=== PATIENT | female | born 1945 | race Caucasian/White ===

== ENCOUNTER 2022-06-04 10:50 | Emergency (ER) | payer OTHER, SELFPAY ==
[2022-06-04] VITALS (41 sets, daily range): BP systolic 108–156; BP diastolic 51–70; PULSE 73–97; RESP 14–35; TEMP 36.4–36.8; O2SAT 96–100; BMI 25.9
[2022-06-04 11:20] LABS: Add Manual Diff / Slide Review NO; Basophils Absolute Auto 0 /uL (0-100); Basophils Percent Auto 0.5 % (0-2); Eosinophils Absolute Auto 100 /uL (0-450); Eosinophils Percent Auto 1.5 % (2-4); Hematocrit 22.3 % (36-46); Hemoglobin 7.1 g/dL (12.0-16.0); Lymphocytes Absolute Auto 400 /uL (1100-4500); Lymphocytes Percent Auto 9.2 % (25-40); Mean Corpuscular HGB Conc 31.9 % (30-36); Mean Corpuscular Hemoglobin 26.3 PG (26-34); Mean Corpuscular Volume 82.3 fL (80-100); Monocytes Absolute Auto 400 /uL (0-900); Monocytes Percent Auto 8.8 % (3-14); Neutrophils Absolute Auto 3400 /uL (1500-7000); Platelet Count 174 X10^3/uL (150-400); Red Blood Cell Count 2.71 X10^6/uL (4.0-5.2); Red Cell Distribution Width 19.6 % (11.6-14.8); White Blood Cell Count 4.2 X10^3/uL (4.5-11.0)
[2022-06-04 11:21] LABS: INR 1.1 (0.9-1.3); Prothrombin Time 12.1 SECONDS (10.1-12.7)
[2022-06-04 11:23] LABS: PTT Partial Thromboplastin Tim 28 SECONDS (26-36)
--- NOTE | 2022-06-04 11:25 | ED_ITS ---
HPI - GI Bleed General Chief complaint: GI Bleed Stated complaint: rectal bleeding post chemo Time Seen by Provider: 06/04/22 10:58 Source: patient Mode of arrival: Ambulatory Limitations: no limitations History of Present Illness HPI Narrative: Patient is a 77-year-old female. History of a pancreatic tumor. Has undergone chemotherapy and radiation. She states that her last workup shows there is no signs of any tumors. She is had no abdominal surgeries. Over the past couple months she has had multiple issues with upper GI bleeding. She is from [place] and is visiting this area. She is received 6 units of blood over the past couple months because of bleeding. Has had multiple endoscopies and colon oscopies. Was told that her bleeding is coming from her stomach. The running thought was that it was from the radiation. She was cleared by her doctor to come here on vacation. She states that she was having some rectal bleeding over the past several days/weeks but it has worsened recently. She is becoming somewhat fatigued. She thinks her blood counts were low. She is having bright red blood per rectum. No vomiting. No belly pain. No blood in her urine. Does not bruise easily. Does not drink alcohol. Not on nonsteroidal anti- inflammatories. Related Data Home Medications Medication Instructions Recorded Confirmed pantoprazole 40 mg tablet,delayed 40 mg PO BID 06/05/22 06/05/22 release Allergies Allergy/AdvReac Type Severity Reaction Status Date / Time No Known Drug Allergies Allergy Verified 06/04/22 11:55 Review of Systems Review of Systems ROS Unobtainable: All systems reviewed & are unremarkable except as noted in HPI and below Patient History Medical History Pancreatic tumor Social History (Updated 06/04/22 @ 11:27 by Emiliano Ritter DO) marital status: Exam Initial Vital Signs Initial Vital Signs: Vital Signs Temperature 98.2 F 06/04/22 11:08 Pulse Rate 96 H 06/04/22 11:08 Respiratory Rate 20 06/04/22 11:08 Blood Pressure 156/70 H 06/04/22 11:08 Pulse Oximetry 100 06/04/22 11:08 Oxygen Delivery Method 06/04/22 11:08 Const General: cooperative and comfortable HENMT Head: normal to inspection and normocephalic Resp Effort & Inspection: normal respiratory effort Auscultation: clear to auscultation bilaterally Cardio Rate: regular rate Rhythm: regular rhythm GI Inspection: normal to inspection Palpation: soft and No tender Skin General: no rashes or lesions noted Neuro General: patient alert, patient awake, patient oriented x3 and moves all extremities Extrem General: normal to inspection and capillary refill normal Psych Appearance: grossly normal and well kempt Course Orders Ordered: Discontinued Medications Diphenhydramine HCl (Diphenhydramine 25 Mg Tablet) 25 mg PO NOW ONE Stop: 06/04/22 18:04 Last Admin: 06/04/22 18:23 Dose: 25 mg Documented By: CARLOS Pantoprazole Sodium (Pantoprazole 40 Mg Vial) 80 mg IV NOW ONE Stop: 06/04/22 11:37 Last Admin: 06/04/22 11:56 Dose: 80 mg Documented By: FRANNY Pantoprazole Sodium (Pantoprazole Dr 40 Mg Tablet) 40 mg PO 0700,2100 RICKY Vital Signs Vital signs: Vital Signs - 8 hr 06/05/22 07:22 06/05/22 04:30 06/05/22 05:00 Temperature 97.9 F Pulse Rate 76 77 Respiratory Rate 16 16 Blood Pressure Pulse Oximetry 97 94 06/05/22 05:30 06/05/22 06:00 06/05/22 06:30 Temperature Pulse Rate 77 78 76 Respiratory Rate 16 16 15 Blood Pressure Pulse Oximetry 93 96 93 06/05/22 07:00 06/05/22 07:02 06/05/22 07:02 Temperature Pulse Rate 77 92 H Respiratory Rate 15 23 Blood Pressure 120/60 Pulse Oximetry 95 99 06/05/22 07:51 06/05/22 08:00 06/05/22 08:30 Temperature Pulse Rate 85 82 80 Respiratory Rate 18 21 21 Blood Pressure Pulse Oximetry 99 99 99 06/05/22 09:00 06/05/22 09:10 06/05/22 09:10 Temperature Pulse Rate 80 79 Respiratory Rate 23 22 Blood Pressure 132/63 Pulse Oximetry 98 99 06/05/22 09:30 06/05/22 10:00 06/05/22 10:30 Temperature Pulse Rate 73 75 71 Respiratory Rate 17 15 15 Blood Pressure Pulse Oximetry 98 98 98 06/05/22 11:00 Temperature Pulse Rate 72 Respiratory Rate 16 Blood Pressure Pulse Oximetry 99 MDM - GI Bleed Lab Data Attestation: I reviewed the patient's lab results. Result diagrams: 06/05/22 07:19 06/04/22 11:03 Labs: Lab Results 06/04/22 06/04/22 06/04/22 Range/Units 11:03 11:03 11:03 WBC 4.2 L (4.5-11.0) X10^3/uL RBC 2.71 L (4.0-5.2) X10^6/uL Hgb 7.1 L (12.0-16.0) g/dL Hct 22.3 L (36-46) % MCV 82.3 (80-100) fL MCH 26.3 (26-34) PG MCHC 31.9 (30-36) % RDW 19.6 H (11.6-14.8) % Plt Count 174 (150-400) X10^3/uL Neut % (Auto) 80.0 H (50-75) % Lymph % (Auto) 9.2 L (25-40) % [place] % (Auto) 8.8 (3-14) % Eos % (Auto) 1.5 L (2-4) % Baso % (Auto) 0.5 (0-2) % Neut # (Auto) 3400 (3778-9549) /uL Lymph # (Auto) 400 L (5658-4296) /uL [place] # (Auto) 400 (0-900) /uL Eos # (Auto) 100 (0-450) /uL Baso # (Auto) 0 (0-100) /uL PT 12.1 (10.1-12.7) SECONDS INR 1.1 (0.9-1.3) APTT 28 (26-36) SECONDS Sodium 136 L (137-145) mmol/L Potassium 4.6 (3.4-5.1) mmol/L Chloride 108 H (98-107) mmol/L Carbon Dioxide 19 L (22-32) mmol/L BUN 11 (7-17) mg/dL Creatinine 0.56 (0.52-1.04) mg/dL Estimated GFR > 60 (>60) mL/min BUN/Creatinine Ratio 19.6 (6-22) Glucose 173 H (80-110) mg/dL Calcium 8.2 L (8.4-10.2) mg/dL Total Bilirubin 0.5 (0.2-1.3) mg/dL AST 44 H (14-36) IU/L ALT 23 (<35) IU/L Alkaline Phosphatase 145 H (38-126) U/L Total Protein 5.8 L (6.3-8.2) g/dL Albumin 3.3 L (3.5-5.0) g/dL Globulin 2.5 (1.7-4.1) g/dL Albumin/Globulin Ratio 1.3 (1.0-2.8) Urine Color Urine Appearance Urine pH (4.5-8.0) Ur Specific [place] (1.000-1.035) Urine Protein (Negative) Urine Glucose (UA) (Negative) g/dL Urine Ketones (NEGATIVE) Urine Occult Blood (Negative) Urine Nitrate (Negative) Urine Bilirubin (NEGATIVE) Urine Urobilinogen (0.2) E.U./dL Ur Leukocyte Esterase (NEGATIVE) Urine RBC (0-5/HPF) Urine WBC (0-5/HPF) Ur Squamous Epith Cells (0-5/HPF) Urine Bacteria (None) Ur Culture Indicated? SARS-CoV-2 (PCR) (Negative) Blood Type Antibody Screen Crossmatch 06/04/22 06/04/22 06/04/22 Range/Units 11:03 12:12 18:09 WBC (4.5-11.0) X10^3/uL RBC (4.0-5.2) X10^6/uL Hgb 8.9 L (12.0-16.0) g/dL Hct 26.9 L (36-46) % MCV (80-100) fL MCH (26-34) PG MCHC (30-36) % RDW (11.6-14.8) % Plt Count (150-400) X10^3/uL Neut % (Auto) (50-75) % Lymph % (Auto) (25-40) % [place] % (Auto) (3-14) % Eos % (Auto) (2-4) % Baso % (Auto) (0-2) % Neut # (Auto) (0842-7236) /uL Lymph # (Auto) (0831-7009) /uL [place] # (Auto) (0-900) /uL Eos # (Auto) (0-450) /uL Baso # (Auto) (0-100) /uL PT (10.1-12.7) SECONDS INR (0.9-1.3) APTT (26-36) SECONDS Sodium (137-145) mmol/L Potassium (3.4-5.1) mmol/L Chloride (98-107) mmol/L Carbon Dioxide (22-32) mmol/L BUN (7-17) mg/dL Creatinine (0.52-1.04) mg/dL Estimated GFR (>60) mL/min BUN/Creatinine Ratio (6-22) Glucose (80-110) mg/dL Calcium (8.4-10.2) mg/dL Total Bilirubin (0.2-1.3) mg/dL AST (14-36) IU/L ALT (<35) IU/L Alkaline Phosphatase (38-126) U/L Total Protein (6.3-8.2) g/dL Albumin (3.5-5.0) g/dL Globulin (1.7-4.1) g/dL Albumin/Globulin Ratio (1.0-2.8) Urine Color Urine Appearance Urine pH (4.5-8.0) Ur Specific [place] (1.000-1.035) Urine Protein (Negative) Urine Glucose (UA) (Negative) g/dL Urine Ketones (NEGATIVE) Urine Occult Blood (Negative) Urine Nitrate (Negative) Urine Bilirubin (NEGATIVE) Urine Urobilinogen (0.2) E.U./dL Ur Leukocyte Esterase (NEGATIVE) Urine RBC (0-5/HPF) Urine WBC (0-5/HPF) Ur Squamous Epith Cells (0-5/HPF) Urine Bacteria (None) Ur Culture Indicated? SARS-CoV-2 (PCR) Negative (Negative) Blood Type A Positive Antibody Screen Negative Crossmatch See Detail 06/04/22 06/05/22 06/05/22 Range/Units 19:01 00:08 07:19 WBC (4.5-11.0) X10^3/uL RBC (4.0-5.2) X10^6/uL Hgb 8.4 L 8.6 L (12.0-16.0) g/dL Hct 25.5 L 26.1 L (36-46) % MCV (80-100) fL MCH (26-34) PG MCHC (30-36) % RDW (11.6-14.8) % Plt Count (150-400) X10^3/uL Neut % (Auto) (50-75) % Lymph % (Auto) (25-40) % [place] % (Auto) (3-14) % Eos % (Auto) (2-4) % Baso % (Auto) (0-2) % Neut # (Auto) (1867-5450) /uL Lymph # (Auto) (7066-6870) /uL [place] # (Auto) (0-900) /uL Eos # (Auto) (0-450) /uL Baso # (Auto) (0-100) /uL PT (10.1-12.7) SECONDS INR (0.9-1.3) APTT (26-36) SECONDS Sodium (137-145) mmol/L Potassium (3.4-5.1) mmol/L Chloride (98-107) mmol/L Carbon Dioxide (22-32) mmol/L BUN (7-17) mg/dL Creatinine (0.52-1.04) mg/dL Estimated GFR (>60) mL/min BUN/Creatinine Ratio (6-22) Glucose (80-110) mg/dL Calcium (8.4-10.2) mg/dL Total Bilirubin (0.2-1.3) mg/dL AST (14-36) IU/L ALT (<35) IU/L Alkaline Phosphatase (38-126) U/L Total Protein (6.3-8.2) g/dL Albumin (3.5-5.0) g/dL Globulin (1.7-4.1) g/dL Albumin/Globulin Ratio (1.0-2.8) Urine Color Yellow Urine Appearance Clear Urine pH 5.5 (4.5-8.0) Ur Specific [place] 1.010 (1.000-1.035) Urine Protein Negative (Negative) Urine Glucose (UA) Negative (Negative) g/dL Urine Ketones Negative (NEGATIVE) Urine Occult Blood Negative (Negative) Urine Nitrate Negative (Negative) Urine Bilirubin Negative (NEGATIVE) Urine Urobilinogen 0.2 (0.2) E.U./dL Ur Leukocyte Esterase Negative (NEGATIVE) Urine RBC None seen (0-5/HPF) Urine WBC 0-1/hpf (0-5/HPF) Ur Squamous Epith Cells 0-1 /hpf (0-5/HPF) Urine Bacteria None seen (None) Ur Culture Indicated? Cult not indicated SARS-CoV-2 (PCR) (Negative) Blood Type Antibody Screen Crossmatch Point of Care Testing Stool Occult Blood Positive MDM Narrative Medical decision making narrative: Patient transfused 2 units of packed red blood cells after discussion of the risks and benefits given her hemoglobin and hematocrit today. She is a history of an upper GI bleed. Has been feeling weak. Patient does feel somewhat better. Discussed the case with Dr. Medrano on-call for General surgery who states that given the patient's history she feels that the patient should be tra nsferred to a facility that has Gastroenterology. Attempted to contact multiple facilities without any bed placement. Repeat H&H ordered. Care turned over to Dr. Gray at change of shift to continue to disposition. Patient has been stable overnight. Her H&H has remained relatively stable. She did have 1 further episode of blood in her stool this morning but has had another bowel movement since then she states that was very little stool. She is feeling much better. Is not tachycardic. Not hypotensive. Is able to ambulate without becoming lightheaded or short of breath. I did have a discussion with GI at [facility] who stated that since she is currently stable with her vital signs and also her hemoglobin hematocrit that would be best that the patient was discharged to go back to her own providers in [facility]. He does agree that the patient needs further evaluation to include endoscopy and potential colonoscopy however this does not need to be performed emergently. I did discuss this with the patient and her daughter who is at bedside. Will discharge patient with strict return precautions. They expressed understanding agreement. She is currently on a proton pump inhibitor and we will have her continue this. Critical Care Time Critical Care Time Critical Care Time: Yes Total Critical Care Time: 60 Attestation: The high probability of a clinically significant, sudden or life threatening deterioration of the cardiovascular, hematologic system(s) required my full and direct attention, intervention and personal management. The aggregate critical care time was []60 minutes. This time is in addition to time spent performing reported procedures but includes the following: [x] Data Review and interpretation [x] Patient assessment and monitoring of vital signs [x] Documentation [x] Medication orders and management Discharge Plan Departure Patient Disposition: Home Clinical Impression: Upper gastrointestinal hemorrhage, Anemia Instructions: Gastrointestinal Bleeding Activity Restrictions/Additional Instructions: I do recommend that you continue with your pantoprazole/Protonix. I also recommend that you consider returning back to [facility] so that you can be further evaluated by your doctors there. Return to the emergency department for any new or worsening symptoms. Prescriptions: No Action pantoprazole 40 mg tablet,delayed release (DR/EC) 40 mg PO BID Rx Instructions: 30 mins before breakfast and dinner Visit Report Forms: Patient Portal/API
[2022-06-04 11:26] LABS: Alanine Aminotransferase 23 IU/L (<35); Albumin 3.3 g/dL (3.5-5.0); Albumin Globulin Ratio 1.3 (1.0-2.8); Alkaline Phosphatase 145 U/L (38-126); Aspartate Aminotransferase 44 IU/L (14-36); BUN Creatinine Ratio 19.6 (6-22); Bilirubin Total 0.5 mg/dL (0.2-1.3); Blood Urea Nitrogen 11 mg/dL (7-17); Calcium 8.2 mg/dL (8.4-10.2); Carbon Dioxide 19 mmol/L (22-32); Chloride 108 mmol/L (98-107); Estimated Glomerular Filt Rate > 60 mL/min (>60); Globulin 2.5 g/dL (1.7-4.1); Glucose 173 mg/dL (80-110); Sodium 136 mmol/L (137-145); Total Protein 5.8 g/dL (6.3-8.2)
[2022-06-04 11:27] LABS: HEMOLYSIS 58 (0-50)
[2022-06-04 11:28] LABS: Potassium 4.6 mmol/L (3.4-5.1)
[2022-06-04] MEDS: PANTOPRAZOLE 40 MG VIAL 80 MG IV (11:56)
[2022-06-04 12:33] LABS: COVID19 -Nasal RAPID Negative (Negative)
--- NOTE | 2022-06-04 14:03 | PC.NURSE ---
Bed Search This BACTERIOLOGIST INDUSTRIAL called [facility], [place] & [facility] and faxed facesheet for review, patient is on waitlist. This BACTERIOLOGIST INDUSTRIAL called [facility], [facility], [place], [facility] and [facility], and they are all at capacity and unable to review patient due to full waitlist. Leia Saleem, BACTERIOLOGIST INDUSTRIAL
--- NOTE | 2022-06-04 18:00 | PC.NURSE ---
Pt reports chronic itching and asks if she can have any medication for it. Notified provider.
[2022-06-04 18:20] LABS: Hematocrit 26.9 % (36-46); Hemoglobin 8.9 g/dL (12.0-16.0)
[2022-06-04] MEDS: diphenhydrAMINE 25 MG TABLET PO (18:23)
[2022-06-04 19:11] LABS: Appearance Urine UA CLEAR; Bilirubin Urine UA NEGATIVE (NEGATIVE); Color Urine UA YELLOW; Glucose Urine UA NEGATIVE (Negative); Ketones Urine UA NEGATIVE (NEGATIVE); Leukocyte Esterase Urine UA NEGATIVE (NEGATIVE); Nitrite Urine UA NEGATIVE (Negative); Occult Blood Urine UA NEGATIVE (Negative); Protein Urine UA NEGATIVE (Negative); Urobilinogen Urine UA 0.2 E.U./dL (0.2)
[2022-06-04 19:21] LABS: pH Urine UA 5.5 (4.5-8.0)
[2022-06-04 19:22] LABS: Bacteria Urine None Seen; Culture Indicated Urine Cult Not Indicated; RBC Urine None Seen (0-5/HPF); Squamous Epithelial Cell Urine 0-1 /HPF (0-5/HPF); WBC Urine 0-1/HPF (0-5/HPF)
[2022-06-05] VITALS (26 sets, daily range): BP systolic 120–140; BP diastolic 56–67; PULSE 71–92; RESP 15–23; TEMP 36.6; O2SAT 92–99
[2022-06-05 00:18] LABS: Hematocrit 25.5 % (36-46); Hemoglobin 8.4 g/dL (12.0-16.0)
[2022-06-05 07:30] LABS: Hematocrit 26.1 % (36-46); Hemoglobin 8.6 g/dL (12.0-16.0)
--- NOTE | 2022-06-05 07:32 | PC.NURSE ---
pt home meds confirmed. prescriptions pantoprazole 40 mg po 2x daily, takes 30 mins before breakfast and dinner. took am med pantoprazole this am. aware. pt up to restroom to brush teeth. pt reports bloody stool bowel movement this am. morning labs drawn and sent to lab. daughter here, coming in this am. ambulatory without difficulty, steady gate.
--- NOTE | 2022-06-05 10:13 | PC.NURSE ---
This RESPIRATORY MEDICINE PHYSICIAN called [facility], and [facility] to update patient transfer status. Patient still on lists at all facilities, but there is no bed availability at the time.
== END 2022-06-05 12:46 | disposition home or self-care (01) ==
PROVIDERS: Emergency Medicine; Emergency Provider Emergency Medicine
DX: K92.2 Gastrointestinal hemorrhage, unspecified (principal); D64.9 Anemia, unspecified; Z20.822 Contact with and (suspected) exposure to COVID-19
CPT/HCPCS: 36415; 36430; 80053; 81001; 82272; 85014; 85018; 85025; 85610; 85730; 86850; 86900; 86901; 87635; 96374; 99285; 99291; C9803; P9016; C9113